=== PATIENT | female | born 1965 | race Hispanic/Latino ===

== ENCOUNTER → 2023-03-31 | Outpatient (CLI) | payer SELFPAY ==
[2023-03-31 12:35] LABS: ALBUMIN 4.2 g/dL (3.5-5.0); CREATININE 0.8 mg/dL (0.5-1.5); POTASSIUM 4.6 mmol/L (3.5-5.1); TOTAL PROTEIN, SERUM 8.5 g/dL (6.0-8.3)
== END | disposition home or self-care (01) ==
LOC: LAB 08:30
PROVIDERS: ATTEND Student in an Organized Health Care Education/Training Program
DX: R94.39 Abnormal result of other cardiovascular function study (principal)
CPT/HCPCS: 36415; 80053

== ENCOUNTER → 2023-04-05 | Outpatient (CLI) | payer SELFPAY ==
[~2023-04-05] MED LIST: IOHEXOL 350 MG/ML 100ML INFUS..BTL IV ONE; METOPROLOL TARTRATE 1 MG/ML 5ML VIAL IV ONE
== END | disposition home or self-care (01) ==
LOC: RAH 07:34 → EDUNIT# 04-07 08:00
PROVIDERS: ATTEND Student in an Organized Health Care Education/Training Program
DX: R94.39 Abnormal result of other cardiovascular function study (principal); I10 Essential (primary) hypertension
CPT/HCPCS: 75574; J3490; Q9967